=== PATIENT | female | born 1955 | race Caucasian/White ===

== ENCOUNTER 2024-08-13 12:59 | Emergency (ER) | payer BC, MEDICARE, OTHER ==
[2024-08-13 13:07] VITALS: BP 140/81; PULSE 98; RESP 18; TEMP 98.2; BMI 44.2
[2024-08-13] MEDS ORDERED: IBUPROFEN 600 MG TABLET (FP) PO ONE (16:14)
[2024-08-13] MEDS: IBUPROFEN 600 MG TABLET (FP) PO ONE (16:15)
== END 2024-08-13 16:19 | disposition home or self-care (01) ==
LOC: FER 12:59
DX: M25.561 Pain in right knee (principal); W01.0XXA Fall on same level from slipping, tripping and stumbling without subsequent striking against object, initial encounter; Y99.0 Civilian activity done for income or pay
CPT/HCPCS: 73560-TC-RT-FY; 99283-25